=== PATIENT | female | born 1955 | race Two or more races ===

== ENCOUNTER 2023-10-29 15:37 | Emergency (ER) | payer OTHER ==
[~2023-10-29] VITALS: Ht 160 cm; Wt 85.3 kg
[2023-10-29] MEDS ORDERED: LITHOBID300 M1 (15:53)
[2023-10-29] MEDS ORDERED: ZESTRIL40 M1 (15:53)
[2023-10-29] MEDS ORDERED: XANAX XR0.5 MG PO (15:53)
[2023-10-29] MEDS ORDERED: TOPROL XL50 M1 PO (15:54)
[2023-10-29] MEDS ORDERED: HUMALOG100 UNIT/2 SQ (15:54)
[2023-10-29] MEDS ORDERED: IRBESARTAN300 MG (15:54)
[2023-10-29] MEDS ORDERED: ATORVASTATIN CA40 MG PO (15:55)
[2023-10-29] MEDS ORDERED: ONDANSETRON HCL 2 MG/ML VIAL ONE (16:41)
[2023-10-29] MEDS ORDERED: HYOSCYAMINE SULFATE 0.125 MG TAB.SUBL ONE (16:42)
[2023-10-29] MEDS ORDERED: 0.9 % SODIUM CHLORIDE 1,000 ML IV SCH (16:45)
[2023-10-29] MEDS ORDERED: ONDANSETRON HCL 2 MG/ML VIAL IV ONE (16:45)
[2023-10-29] MEDS ORDERED: HYOSCYAMINE SULFATE 0.125 MG TAB.SUBL SL ONE (16:45)
[2023-10-29 17:17] LABS: HEMOGLOBIN 13.7 g/dL (12.0-15.00); MEAN CELL VOLUME 94.7 fL (80.00-100.00); MEAN CORPUSCULAR HEMOGLOBIN 30.9 pg (27.00-32.0); MEAN CORPUSCULAR HGB CONC 32.6 g/dl (32.0-36.0); PLATELET COUNT 216 K/uL (150-450); RED BLOOD COUNT 4.43 M/uL (4.00-6.00); RED CELL DISTRIBUTION WIDTH 13.1 % (11.5-14.5)
[2023-10-29 17:22] LABS: PH,URINE 5.5 (5.0-8.0); URINE APPEARANCE Clear; URINE BILIRRUBIN Negative (NEGATIVE); URINE BLOOD Negative; URINE COLOR Yellow; URINE KETONE Trace (NEGATIVE); URINE LEUKOCYTE Negative; URINE NITRATE Negative; URINE PROTEIN Negative (NEGATIVE); URINE UROBILINOGEN 0.2 E.U./dl
[2023-10-29 17:26] LABS: URINE BACTERIA 12.5 uL (0.0-1933); URINE CAST 0.76 uL (0.0-1.40); URINE EPITHELIAL CELLS 5.2 uL (0.0-38.8); URINE GLUCOSE >=1000 MG/DL (NEGATIVE); URINE WBC 9.7 uL (0.0-23.2)
[2023-10-29 17:36] LABS: ALBUMIN 4.3 gm/dL (3.4-5.0); BILIRUBIN TOTAL 0.38 mg/dL (0.3-1.2); CALCIUM 9.7 mg/dL (8.5-10.1); CREATININE SERUM 0.96 mg/dL (0.55-1.02); GFR 57.63; GLOBULINA 3.4 G/DL (2.4-3.5); POTASSIUM 4.62 mEq/L (3.5-5.1); TOTAL PROTEIN 7.7 gm/dL (6.4-8.2)
[2023-10-29] MEDS ORDERED: LOPERAMIDE HCL 2 MG CAPSULE PO ONE ×2 (20:00→20:16)
== END 2023-10-29 20:34 | disposition home or self-care (01) ==
LOC: ER 15:39 → EDBD 16:12 → ER 20:34
PROVIDERS: Emergency Medicine
DX: K52.9 Noninfective gastroenteritis and colitis, unspecified (principal); E11.9 Type 2 diabetes mellitus without complications; Z79.4 Long term (current) use of insulin; I10 Essential (primary) hypertension; Z88.8 Allergy status to other drugs, medicaments and biological substances; Z20.822 Contact with and (suspected) exposure to COVID-19